=== PATIENT | male | born 1980 | race Caucasian/White ===

== ENCOUNTER 2017-04-26 01:14 | Emergency (ER) | payer SELFPAY ==
[~2017-04-26] VITALS: Ht 177.8 cm; Wt 105.2 kg
[~2017-04-26 01:14] MED LIST: FLEXERIL10 MG PO; MOTRIN800 MG PO; PERCOCET 5/31 TABLET PO
[2017-04-26 06:25] LABS: HEMATOCRIT 46.6 % (38.0-50.0); HEMOGLOBIN 16.1 G/DL (12.5-16.6); MCH 30.9 PG (29.0-34.0); MCHC 34.5 G/DL (30.0-36.0); MCV 89.4 FL (86-99); PLATELET COUNT 210 K/uL (156-360); RBC DIS.WIDTH-SD 39.2 % (39-53); RED BLOOD COUNT 5.21 M/uL (4.00-5.50); WHITE BLOOD COUNT 10.6 K/uL (4.1-10.2)
[2017-04-26 06:33] LABS: CHLORIDE 105 mEq/L (99-109); POTASSIUM 4.5 mEq/L (3.7-5.4); SODIUM 138 mEq/L (136-147)
[2017-04-26 06:35] LABS: GLUCOSE 103 mg/dL (70-99)
[2017-04-26 06:39] LABS: GFR ESTIMATE (CALCULATED) > 59 mL/min/ (58.99-99999); UREA NITROGEN (BUN) 14 mg/dL (9-23)
[2017-04-26] MEDS ORDERED: NAPROXEN500 MG PO (07:34)
[2017-04-26 07:48] VITALS: BP 108/82
== END 2017-04-26 07:50 | disposition home or self-care (01) ==
LOC: EME 01:14
PROVIDERS: Physician Assistant
DX: M79.661 Pain in right lower leg (principal); F17.200 Nicotine dependence, unspecified, uncomplicated
CPT/HCPCS: 80048; 85027; 93971; 99281; 99283